=== PATIENT | female | born 1955 | race Caucasian/White ===

== ENCOUNTER 2017-04-07 10:45 | Outpatient (CLI) | payer BC | END 2017-04-07 10:46 | disposition home or self-care (01) | LOC: BICRAD 10:45 | PROVIDERS: ATTEND Family Medicine | DX: M25.512 Pain in left shoulder (principal); M25.511 Pain in right shoulder; M19.012 Primary osteoarthritis, left shoulder; M19.011 Primary osteoarthritis, right shoulder ==

== ENCOUNTER 2018-01-29 09:24 | Outpatient (CLI) | payer BC ==
--- NOTE | 2018-01-29 11:44 | ULT ---
ULTRASOUND RETROPERITONEUM COMPLETE: (RENAL) DATE: 01-29-18 HISTORY: 62-year-old female with hematuria, R31.9. Family history of renal cancer. FINDINGS: The right kidney measures 10.5 x 5 x 5 cm. The left kidney measures 12 x 5.5 x 6 cm. Renal cortical echogenicity is normal. There is no hydronephrosis. There are no moderate sized or large renal cyst ic lesions or solid masses. Urinary bladder is almost empty at the time of the scan with a volume of 25 ml, and therefore, cannot be accurately evaluated. IMPRESSION: 1. No major renal pathology identified. 2. Incomplete evaluation of the urinary bladder. lisa POS: [facility]
== END 2018-01-29 09:25 | disposition home or self-care (01) ==
LOC: BICULT 09:24
PROVIDERS: ATTEND Family Medicine
DX: R31.9 Hematuria, unspecified (principal); Z80.51 Family history of malignant neoplasm of kidney
CPT/HCPCS: 76770; 81001; 87077; 87086

== ENCOUNTER 2018-09-19 07:55 | Outpatient (CLI) | payer BC ==
--- NOTE | 2018-09-19 09:25 | MRI ---
MRI RIGHT KNEE: Date: 09/19/18 PROVIDED CLINICAL HISTORY: Right knee pain. FINDINGS: Intact fibers of the anterior cruciate ligament are not identified. Posterior cruciate ligament, medi al collateral ligament, lateral collateral ligamentous complex, and extensor mechanism appear intact. There is complex degenerative tearing involving the posterior horn of the medial meniscus extending i nto the body. The lateral meniscus demonstrates no evidence for tear. There is probably a displaced m eniscal flap posterior to the posterior horn of the medial meniscus. No focal articular cartilage defect is apparent. There is a moderate knee joint effusion. No focal concerning regional marrow or muscular signal abnormality apparent. IMPRESSION: 1. ACL insufficiency. 2. Medial meniscal tear. 3. Moderate knee joint effusion. POS: [facility]
--- NOTE | 2018-09-19 09:33 | RAD ---
4 VIEWS RIGHT KNEE: Date: 09/19/18 HISTORY: Lateral right knee pain with tightness and swelling and instability for 8-10 weeks. History of prior ACL tear many years ago. FINDINGS: There is minimal tricompartment osteophytosis present. Osteopenia is noted. There is no fracture or d islocation seen. No joint space narrowing is appreciated. Minimal calcifications overlie the medial a nd lateral joint compartments likely related to mild chondrocalcinosis. Vascular calcifications are s een posterior to the knee. IMPRESSION: 1. Mild osteopenia and osteoarthritis without evidence of an acute osseous abnormality. 2. Minimal chondrocalcinosis. POS: [facility]
== END 2018-09-19 07:56 | disposition home or self-care (01) ==
LOC: SCSMRI 07:55
PROVIDERS: ATTEND Family Medicine
DX: M25.561 Pain in right knee (principal); M25.551 Pain in right hip; M17.11 Unilateral primary osteoarthritis, right knee; M85.861 Other specified disorders of bone density and structure, right lower leg; M11.261 Other chondrocalcinosis, right knee; S83.241A Other tear of medial meniscus, current injury, right knee, initial encounter; M25.461 Effusion, right knee

== ENCOUNTER 2019-01-28 18:00 | Outpatient (CLI) | payer BC | END 2019-01-28 18:01 | disposition home or self-care (01) | LOC: SLEEPLAB 18:00 | PROVIDERS: ATTEND Family Medicine | DX: G47.33 Obstructive sleep apnea (adult) (pediatric) (principal); G47.00 Insomnia, unspecified; R53.83 Other fatigue; I10 Essential (primary) hypertension | CPT/HCPCS: 36415; 80053; 83036; 84439; 84443; 84481; 95806 ==

== ENCOUNTER 2020-09-24 07:55 | Outpatient (CLI) | payer BC ==
[2020-09-24 10:43] LABS: Hemoglobin A1c 5.8 % (4.0-6.0)
== END 2020-09-24 07:56 | disposition home or self-care (01) ==
LOC: SCSRAD 07:55
PROVIDERS: ATTEND Family Medicine
DX: M25.551 Pain in right hip (principal); R73.09 Other abnormal glucose
CPT/HCPCS: 36415; 83036

== ENCOUNTER 2022-06-29 15:31 | Outpatient (CLI) | payer BC | END 2022-06-29 15:32 | disposition home or self-care (01) | LOC: BICRAD 15:31 | PROVIDERS: ATTEND Nurse Practitioner Family | DX: M89.8X1 Other specified disorders of bone, shoulder (principal); M89.9 Disorder of bone, unspecified | CPT/HCPCS: 71130 ==